=== PATIENT | female | born 1970 | race Caucasian/White ===

== ENCOUNTER → 2021-08-23 | Outpatient (CLI) | payer MEDICARE ==
[~2021-08-23] MED LIST: BISACODYL LAXATI5 MG PO; CARAFATE1 G1 PO; CONSTULOSE10 GM/151 PO; MS CONTIN15 MG PO; PROTONIX TR40 M1 PO
[2021-08-23 08:44] VITALS: BP 103/68
[2021-08-23 09:21] VITALS: BP 106/84
[2021-08-23 09:49] VITALS: BP 108/72
[2021-08-23 10:49] VITALS: BP 106/67
[2021-08-23 11:49] VITALS: BP 113/68
[2021-08-23 12:22] VITALS: BP 120/78
== END | disposition home or self-care (01) ==
LOC: TRNFUSION 00:42
PROVIDERS: ATTEND Internal Medicine
DX: D69.6 Thrombocytopenia, unspecified (principal); K76.9 Liver disease, unspecified; F41.9 Anxiety disorder, unspecified; F32.9 Major depressive disorder, single episode, unspecified

== ENCOUNTER → 2021-11-18 | Outpatient (CLI) | payer MEDICARE, MEDICAID | END | disposition home or self-care (01) | LOC: CARD 09:30 | PROVIDERS: ATTEND Internal Medicine | DX: I08.0 Rheumatic disorders of both mitral and aortic valves (principal); Z79.899 Other long term (current) drug therapy ==